=== PATIENT | male | born 1945 | race Caucasian/White ===

== ENCOUNTER → 2019-05-09 | Outpatient (CLI) | payer OTHER ==
[~2019-05-09] MED LIST: DIOVAN HCT 160-1 TA1; SIMVASTATIN10 MG; VASOTEC10 MG
== END | disposition home or self-care (01) ==
LOC: MAMO-SONO 10:45
DX: Z12.5 Encounter for screening for malignant neoplasm of prostate (principal); N40.1 Benign prostatic hyperplasia with lower urinary tract symptoms; R39.14 Feeling of incomplete bladder emptying; R35.0 Frequency of micturition; R35.1 Nocturia; N47.1 Phimosis

== ENCOUNTER 2024-06-16 02:52 | Emergency (ER) | payer OTHER ==
[~2024-06-16] VITALS: Ht 170.2 cm; Wt 72.6 kg
[2024-06-16 02:58] VITALS: BP 91/64; O2SAT 92
[2024-06-16] MEDS ORDERED: METFORMIN HCL500 M1 PO (02:58)
[2024-06-16] MEDS ORDERED: NYSTATIN/TRIAMC15 GM TP (02:59)
[2024-06-16] MEDS ORDERED: TAMOXIFEN CITRA20 MG PO (02:59)
[2024-06-16] MEDS ORDERED: IRBESARTAN150 MG PO (02:59)
[2024-06-16 08:06] LABS: ABG PH 7.447 (7.35-7.45); ABG PO2 71.1 mmHg (80-100); ABG pCO2 30.9 mmHg (35-45); BASE EXCESS -2.1 mmol/l; BICARBONATE 20.8 mmol/l (23-25); SaO2 94.7 %; Tco2 21.8 mmol/l; allen test SATISFACTORY; o2 21 %; puncture site RADIAL LEFT
[2024-06-16 08:09] LABS: HEMOGLOBIN 12.4 g/dL (13-16.00); MEAN CELL VOLUME 86.9 fL (80.0-100.00); MEAN CORPUSCULAR HGB CONC 34.5 g/dl (32.0-36.0); PLATELET COUNT 202 K/uL (150-450); RED BLOOD COUNT 4.14 M/uL (4.00-6.00); RED CELL DISTRIBUTION WIDTH 17.1 % (11.5-14.5)
[2024-06-16 08:15] LABS: PH,URINE 5.5 (5.0-8.0); URINE APPEARANCE Cloudy; URINE BILIRRUBIN Negative (NEGATIVE); URINE BLOOD Trace; URINE COLOR Yellow; URINE GLUCOSE Negative (NEGATIVE); URINE KETONE Trace (NEGATIVE); URINE LEUKOCYTE Moderate; URINE NITRATE Negative; URINE PROTEIN 30 (NEGATIVE); URINE UROBILINOGEN 0.2 E.U./dl
[2024-06-16 08:16] LABS: URINE EPITHELIAL CELLS 3.6 uL (0.0-38.8); URINE WBC 607.3 uL (0.0-23.2)
[2024-06-16 08:41] LABS: URINE CAST 0.29 uL (0.0-1.40)
[2024-06-16 09:28] LABS: CALCIUM 7.9 mg/dL (8.5-10.1); CREATININE SERUM 1.01 mg/dL (0.70-1.30); GFR 70.9; POTASSIUM 3.5 mEq/L (3.5-5.1)
[2024-06-16 09:30] LABS: PROSTATIC SPECIFIC ANTIGEN 6.16 NG/ML (0.010-4.00)
== END 2024-06-16 09:51 | disposition home or self-care (01) ==
LOC: ER 02:52
DX: R53.81 Other malaise (principal); K52.1 Toxic gastroenteritis and colitis; T45.1X5A Adverse effect of antineoplastic and immunosuppressive drugs, initial encounter

== ENCOUNTER 2024-06-20 05:31 | Inpatient (IN) | payer OTHER ==
[~2024-06-20] VITALS: Ht 175.3 cm; Wt 86.2 kg
[~2024-06-20 05:31] MED LIST changes: +IRBESARTAN150 MG PO; +METFORMIN HCL500 M1 PO; +NYSTATIN/TRIAMC15 GM TP; +TAMOXIFEN CITRA20 MG PO
[2024-06-20] MEDS ORDERED: PROPAFENONE HC225 MG PO (05:35)
[2024-06-20] MEDS ORDERED: METFORMIN HCL500 M4 PO (05:36)
[2024-06-20] MEDS ORDERED: ATORVASTATIN CA40 MG PO (05:36)
[2024-06-20] MEDS ORDERED: TAMSULOSIN HCL0.4 MG PO (05:36)
[2024-06-20] MEDS ORDERED: ALLOPURINOL300 MG PO (05:36)
[2024-06-20] MEDS ORDERED: CEFTRIAXONE SODIUM 1,000 MG VIAL IV STA (06:26)
[2024-06-20] MEDS ORDERED: 0.9 % SODIUM CHLORIDE 1,000 ML IV ONE (06:30)
[2024-06-20] MEDS ORDERED: CEFTRIAXONE SODIUM 1,000 MG VIAL ONE (06:33)
[2024-06-20 07:27] LABS: HEMATOCRIT 33.7 % (39.0-48.0); HEMOGLOBIN 11.4 g/dL (13-16.00); MEAN CELL VOLUME 86.2 fL (80.0-100.00); MEAN CORPUSCULAR HEMOGLOBIN 29.2 pg (27.00-32.0); MEAN CORPUSCULAR HGB CONC 33.8 g/dl (32.0-36.0); PLATELET COUNT 229 K/uL (150-450); RED BLOOD COUNT 3.92 M/uL (4.00-6.00); RED CELL DISTRIBUTION WIDTH 16.6 % (11.5-14.5)
[2024-06-20 08:43] LABS: ALBUMIN 2.5 gm/dL (3.4-5.0); BILIRUBIN TOTAL 0.86 mg/dL (0.3-1.2); CALCIUM 7.7 mg/dL (8.5-10.1); CREATININE SERUM 1.28 mg/dL (0.70-1.30); GFR 53.94; GLOBULINA 3.2 G/DL (2.4-3.5); POTASSIUM 4.54 mEq/L (3.5-5.1); TOTAL PROTEIN 5.7 gm/dL (6.4-8.2)
[2024-06-20 11:15] LABS: PH,URINE 5.5 (5.0-8.0); URINE APPEARANCE Turbid; URINE BILIRRUBIN Negative (NEGATIVE); URINE COLOR Dark Yellow; URINE GLUCOSE Negative (NEGATIVE); URINE KETONE Trace (NEGATIVE); URINE LEUKOCYTE Large; URINE NITRATE Positive; URINE UROBILINOGEN 0.2 E.U./dl
[2024-06-20 11:20] LABS: URINE CAST 6.48 uL (0.0-1.40); URINE EPITHELIAL CELLS 26.7 uL (0.0-38.8); URINE RBC 9.5 uL (0.0-20.8)
[2024-06-20 11:24] LABS: URINE BACTERIA > 9821.5 uL (0.0-1933); URINE BLOOD Trace; URINE PROTEIN 100 (NEGATIVE); URINE WBC > 5548.3 uL (0.0-23.2)
[2024-06-20] MEDS ORDERED: RINGERS SOLUTION,LACTATED 1,000 ML IV SCH (14:00)
[2024-06-20 14:17] VITALS: BP 90/61
[2024-06-20 16:00] VITALS: BP 96/62; O2SAT 99
[2024-06-20] MEDS ORDERED: INSULIN LISPRO 1,000 UNIT/10 ML UNITS SUBCUTANEO PRN (16:15)
[2024-06-20] MEDS ORDERED: DEXTROSE 50 % IN WATER 0.5 G/ML DISP.SYRIN IV PRN (16:15)
[2024-06-20] MEDS ORDERED: 0.9 % SODIUM CHLORIDE 1,000 ML IV STA (16:34)
[2024-06-20] MEDS ORDERED: SIMVASTATIN 20 MG TABLET PO SCH (17:00)
[2024-06-20] MEDS ORDERED: PROPAFENONE 225 MG PO SCH (17:00)
[2024-06-20 17:53] VITALS: BP 96/54; O2SAT 97
[2024-06-21 01:46] VITALS: BP 115/76; O2SAT 95
[2024-06-21] MEDS ORDERED: LEVOTHYROXINE SODIUM 50 MCG TABLET PO SCH (06:00)
[2024-06-21 06:14] LABS: HEMATOCRIT 30.7 % (39.0-48.0); HEMOGLOBIN 10.8 g/dL (13-16.00); MEAN CELL VOLUME 86.6 fL (80.0-100.00); MEAN CORPUSCULAR HEMOGLOBIN 30.5 pg (27.00-32.0); MEAN CORPUSCULAR HGB CONC 35.2 g/dl (32.0-36.0); PLATELET COUNT 215 K/uL (150-450); RED BLOOD COUNT 3.55 M/uL (4.00-6.00); RED CELL DISTRIBUTION WIDTH 16.6 % (11.5-14.5)
[2024-06-21 06:56] LABS: ALBUMIN 2.3 gm/dL (3.4-5.0); BILIRUBIN TOTAL 0.49 mg/dL (0.3-1.2); CALCIUM 7.6 mg/dL (8.5-10.1); CREATININE SERUM 0.91 mg/dL (0.70-1.30); GFR 79.96; GLOBULINA 2.7 G/DL (2.4-3.5); PHOSPHOROUS 2.8 mg/dL (2.5-4.9); POTASSIUM 3.78 mEq/L (3.5-5.1)
[2024-06-21 08:20] LABS: MAGNESIUM 1.1 mg/dL (1.8-2.4)
[2024-06-21] MEDS ORDERED: MAGNESIUM SULFATE IN WATER 4 GM/100 ML PIGGYBACK IV STA (08:31)
[2024-06-21 08:32] VITALS: BP 124/76; O2SAT 95
[2024-06-21] MEDS ORDERED: TAMSULOSIN HCL 0.4 MG CAP PO SCH (09:00)
[2024-06-21] MEDS ORDERED: ALLOPURINOL 300 MG TABLET PO SCH (09:00)
[2024-06-21] MEDS ORDERED: ENOXAPARIN SODIUM 40 MG/0.4 ML SYRINGE SUBCUTANEO SCH (09:00)
[2024-06-21] MEDS ORDERED: CEFTRIAXONE SODIUM 2,000 MG VIAL IV SCH (09:00)
[2024-06-21] MEDS ORDERED: TAMOXIFEN CITRATE 10 MG TABLET PO SCH (09:00)
[2024-06-21] MEDS ORDERED: PANTOPRAZOLE SODIUM 40 MG TABLET.DR PO SCH (09:00)
[2024-06-21 17:28] VITALS: BP 100/59; O2SAT 95
[2024-06-22 02:11] VITALS: BP 117/78; O2SAT 93
[2024-06-22 09:12] VITALS: BP 144/80; O2SAT 99
[2024-06-22 16:01] VITALS: BP 119/75; O2SAT 94
[2024-06-22] MEDS ORDERED: IRBESARTAN 150 MG TABLET PO SCH (17:00)
[2024-06-23 02:46] VITALS: BP 148/83; O2SAT 100
[2024-06-23 09:55] VITALS: BP 157/85
[2024-06-23] MEDS ORDERED: 0.9 % SODIUM CHLORIDE 500 ML IV STA (11:00)
[2024-06-23 16:10] VITALS: BP 145/85; O2SAT 93
[2024-06-24 01:16] VITALS: BP 149/77
[2024-06-24 07:05] LABS: HEMATOCRIT 32.6 % (39.0-48.0); HEMOGLOBIN 11.1 g/dL (13-16.00); MEAN CELL VOLUME 85.6 fL (80.0-100.00); MEAN CORPUSCULAR HEMOGLOBIN 29.2 pg (27.00-32.0); MEAN CORPUSCULAR HGB CONC 34.1 g/dl (32.0-36.0); PLATELET COUNT 302 K/uL (150-450); RED BLOOD COUNT 3.81 M/uL (4.00-6.00); RED CELL DISTRIBUTION WIDTH 16.4 % (11.5-14.5)
[2024-06-24 07:46] LABS: ALBUMIN 2.5 gm/dL (3.4-5.0); BILIRUBIN TOTAL 0.38 mg/dL (0.3-1.2); CALCIUM 7.9 mg/dL (8.5-10.1); CREATININE SERUM 0.87 mg/dL (0.70-1.30); GFR 84.22; GLOBULINA 3.1 G/DL (2.4-3.5); PHOSPHOROUS 3.6 mg/dL (2.5-4.9); POTASSIUM 3.69 mEq/L (3.5-5.1); TOTAL PROTEIN 5.6 gm/dL (6.4-8.2)
[2024-06-24 08:57] VITALS: BP 150/86; O2SAT 98
[2024-06-24] MEDS ORDERED: MAGNESIUM SULFATE IN WATER 4 GM/100 ML PIGGYBACK IV NR (10:00)
[2024-06-24] MEDS ORDERED: AMINO ACIDS/PROTEIN HYDROLYS 30 ML BLIST.PACK PO NR (14:00)
[2024-06-24 16:36] VITALS: BP 131/74; O2SAT 96
[2024-06-24] MEDS ORDERED: AMINO ACIDS/PROTEIN HYDROLYS 30 ML BLIST.PACK PO SCH (17:00)
[2024-06-24] MEDS ORDERED: IRON FUM,PS/FOLIC/BCOMP,C NO.9 1 CAP CAPSULE PO SCH (17:00)
[2024-06-24] MEDS ORDERED: MULTIVIT-MIN/IRON FUM/FOLIC AC 1 TAB TABLET PO SCH (17:00)
[2024-06-24] MEDS ORDERED: ACETAMINOPHEN 500 MG GEL..CAP PO PRN (17:30)
[2024-06-24] MEDS ORDERED: MAGNESIUM SULFATE IN WATER 50 ML IV ONE (18:15)
[2024-06-24] MEDS ORDERED: MAGNESIUM SULFATE IN WATER 2 GM/50 ML PIGGYBAG IV ONE (18:54)
[2024-06-25 00:45] VITALS: BP 153/95; O2SAT 95
[2024-06-25 08:50] VITALS: BP 132/83; O2SAT 96
[2024-06-25 17:11] VITALS: BP 126/80; O2SAT 97
[2024-06-26 01:03] VITALS: BP 158/82; O2SAT 98
[2024-06-26 08:43] VITALS: BP 154/69; O2SAT 94
[2024-06-26] MEDS ORDERED: TAMS0.4C PO (09:57)
[2024-06-26] MEDS ORDERED: INTEGRA PLUS C1 EACH PO (10:01)
[2024-06-26] MEDS ORDERED: AVAPRO150 MG PO (10:02)
[2024-06-26] MEDS ORDERED: PANTOPRAZOLE SO40 MG PO (10:02)
[2024-06-26] MEDS ORDERED: SIMVASTATIN20 MG PO (10:02)
[2024-06-26] MEDS ORDERED: MULTIVITAMIN-M1 EACH PO (10:02)
[2024-06-26] MEDS ORDERED: LEVOTHYROXINE50 MCG PO (10:02)
[2024-06-26] MEDS ORDERED: INTESTINEX680 M1 PO (10:03)
== END 2024-06-26 12:47 | disposition home or self-care (01) | DRG 872 ==
LOC: ER 05:31 → MEDI 14:25
PROVIDERS: General Practice; ADMIT Internal Medicine; ATTEND Internal Medicine
PROC: BW21ZZZ Computerized Tomography (CT Scan) of Abdomen and Pelvis (ICD-10-PCS; principal; 2024-06-20)
DX: A41.9 Sepsis, unspecified organism (principal); N39.0 Urinary tract infection, site not specified; I10 Essential (primary) hypertension; E78.5 Hyperlipidemia, unspecified; E03.9 Hypothyroidism, unspecified; K57.30 Diverticulosis of large intestine without perforation or abscess without bleeding; E11.9 Type 2 diabetes mellitus without complications; Z79.4 Long term (current) use of insulin; M10.9 Gout, unspecified; B96.20 Unspecified Escherichia coli [E. coli] as the cause of diseases classified elsewhere; B95.8 Unspecified staphylococcus as the cause of diseases classified elsewhere; N41.8 Other inflammatory diseases of prostate